=== PATIENT | male | born 1995 | race African-American/Black ===

== ENCOUNTER 2017-06-09 15:14 | Emergency (ER) | payer OTHER ==
[~2017-06-09] VITALS: Ht 182.9 cm; Wt 71.2 kg
[2017-06-09 15:39] LABS: HEMATOCRIT 46.7 % (38.0-50.0); HEMOGLOBIN 15.2 G/DL (12.5-16.6); MCH 27.6 PG (29.0-34.0); MCHC 32.5 G/DL (30.0-36.0); MCV 84.9 FL (86-99); PLATELET COUNT 168 K/uL (156-360); RBC DIS.WIDTH-CV 11.9 % (11.8-14.6); RBC DIS.WIDTH-SD 36.9 % (39-53)
[2017-06-09 15:55] LABS: CHLORIDE 103 mEq/L (99-109); POTASSIUM 4.1 mEq/L (3.7-5.4); SODIUM 138 mEq/L (136-147)
[2017-06-09 15:56] LABS: GLUCOSE 95 mg/dL (70-99)
[2017-06-09 16:00] LABS: CREATININE 1.1 mg/dL (0.6-1.3); GFR ESTIMATE (CALCULATED) > 59 mL/min/ (58.99-99999)
[2017-06-09 16:01] LABS: UREA NITROGEN (BUN) 10 mg/dL (9-23)
[2017-06-09 16:05] LABS: TROP-I INTERPRETATION NEGATIVE; TROPONIN-I < 0.01 ng/mL (0.0-0.30)
[2017-06-09 17:02] VITALS: BP 142/84
== END 2017-06-09 17:03 | disposition home or self-care (01) ==
LOC: EME 15:14
DX: R00.8 Other abnormalities of heart beat (principal); I49.3 Ventricular premature depolarization; I45.10 Unspecified right bundle-branch block
CPT/HCPCS: 71046; 80048; 84484; 85027; 93005; 99281; 99285